=== PATIENT | male | born 1940 | race Hispanic/Latino ===

== ENCOUNTER 2023-08-02 12:02 | Emergency (ER) | payer OTHER ==
[~2023-08-02] VITALS: Ht 172.7 cm; Wt 79.4 kg
[2023-08-02 12:03] VITALS: BP 156/69; PULSE 70; RESP 18
[2023-08-02 14:18] LABS: BASOPHILS # (AUTO) 0.02 K/uL (0.00-0.20); BASOPHILS % (AUTO) 0.2 % (0.0-5.0); EOSINOPHILS # (AUTO) 0.02 K/uL (0.00-0.70); EOSINOPHILS % (AUTO) 0.2 % (0.0-8.0); HEMATOCRIT 40.2 % (42-54); IMMATURE GRANULOCYTE ABSOLUTE 0.07 K/uL (0-1); LYMPHOCYTES # (AUTO) 1.1 K/uL (1.0-4.8); LYMPHOCYTES % (AUTO) 9.7 % (21.0-51.0); MEAN CORPUSCULAR HEMOGLOBIN 32.3 pg (27.0-33.0); MEAN CORPUSCULAR HGB CONC 35.8 g/dL (32.0-36.0); MEAN CORPUSCULAR VOLUME 90.1 fL (79-99); MONOCYTES # (AUTO) 0.9 K/uL (0.1-1.0); MONOCYTES % (AUTO) 7.5 % (3.0-13.0); NEUTROPHILS # (AUTO) 9.3 K/uL (1.8-7.7); NEUTROPHILS % (AUTO) 81.8 % (40.0-77.0); PLATELET COUNT (AUTO) 242 K/uL (130-400); RED BLOOD CELL COUNT(AUTO) 4.46 MIL/uL (4.50-6.20); RED CELL DISTRIBUTION WIDTH 12.2 % (11.0-15.5); WHITE BLOOD COUNT (AUTO) 11.4 K/uL (4.8-10.8)
[2023-08-02 14:34] LABS: INFLUENZA TYPE A Negative For Type A (NEGATIVE); INFLUENZA TYPE B Negative For Type B (NEGATIVE)
[2023-08-02 14:36] LABS: POTASSIUM 3.4 mmol/L (3.5-5.1)
[2023-08-02 14:41] LABS: COVID19 (SARS ANTIGEN RAPID) POSITIVE FOR SARS AG (NEGATIVE)
[2023-08-02] MEDS ORDERED: FAMOTIDINE 20MG VIAL IV ONE (15:30)
[2023-08-02] MEDS ORDERED: DEXAMETHASONE SOD PHOSPHATE 4 MG/ML 1ML VIAL IV ONE (15:30)
[2023-08-02] MEDS ORDERED: MORPHINE 4 MG SYG IVP ONE (15:30)
[2023-08-02] MEDS ORDERED: METOCLOPRAMIDE 10 MG/2 ML VIAL IVP ONE (15:30)
[2023-08-02] MEDS ORDERED: KETOROLAC 30MG VIAL (30MG/ML) IVP ONE (15:30)
[2023-08-02] MEDS ORDERED: LACTATED RINGERS 1000ML 1,000 ML IV ONE (16:30)
== END 2023-08-02 18:10 | disposition home or self-care (01) ==
LOC: EDH 12:02 → EDSEX 12:02 → EDH 18:10
DX: G43.909 Migraine, unspecified, not intractable, without status migrainosus (principal); E86.0 Dehydration; E87.6 Hypokalemia; E11.9 Type 2 diabetes mellitus without complications; E78.00 Pure hypercholesterolemia, unspecified; I10 Essential (primary) hypertension; Z20.822 Contact with and (suspected) exposure to COVID-19
CPT/HCPCS: 99285; 96374; 96375; 70450; 96361; 87426; 80048; 85025; 87804 ×2; 36415; J1100; J7120; J3490; J2270; J1885; J2765